=== PATIENT | female | born 1955 | race American Indian/Alaskan Native ===

== ENCOUNTER 2016-12-03 18:15 | Emergency (ER) | payer MEDICARE ==
[2016-12-03] MEDS ORDERED: TYLENOL #3 ONE (19:26)
[2016-12-03] MEDS ORDERED: TYLENOL #3 PO ONE (20:01)
[2016-12-04 01:28] VITALS: BP 126/71
--- NOTE | 2016-12-04 01:43 | Emergency Department Report ---
HPI - General Chief Complaint: Back Pain/Injury Time Seen by Provider: 12/04/16 01:04 - HPI HPI: Patient here complaining of chronic back pain and shoulder pain 2 years. She said that she is out of her oxycodone at home. Patient sees a pain specialist. She said she is having worse back pain radiating down her legs 3 days. Denies any new trauma. He reports pain is 7 out of 10 and achy . The urinary burning frequency or urgency. Denies any abdominal pain. Denies any loss of bowel or bladder function. Denies any numbness or tingling to extremities. ED Past Medical Hx - Past Medical History Previous Medical History?: Yes Hx Hypertension: Yes Hx GERD: Yes Hx Asthma: Yes Additional medical history: Herniated disc, vertigo. Chronic back pain - Surgical History Past Surgical History?: Yes Hx Cholecystectomy: Yes Additional Surgical History: Ectopic X2. Parathyroid Removal. Hysterectomy - Family History Family history: no significant - Social History Smoking Status: Never Smoker Substance Use Type: None - Medications Home Medications: Home Medications Medication Instructions Recorded Confirmed Last Taken Type ALBUTEROL NEB's [Proventil 0.083% 2.5 mg INHALATION Q6H PRN 10/26/13 10/26/13 History NEBS] Fexofenadine/Pseudoephedrine 180 mg PO DAILY 10/26/13 10/26/13 08/03/15 History [Rosanna-D 12 Hour Tablet] Meclizine HCl [Antivert] 25 mg PO Q8HR #12 tablet 10/26/13 08/03/15 Rx NIFEdipine [Nifedipine ER] 30 mg PO DAILY 10/26/13 10/26/13 08/03/15 History Ondansetron [Zofran] 4 mg PO Q6HR PRN #12 tablet 10/26/13 Unknown Rx Acetaminophen/Codeine [Tylenol #3] 1 tab PO Q6H PRN #15 tab 08/04/15 Unknown Rx methOCARBAMOL [Robaxin TAB] 500 mg PO BID #20 tab 08/04/15 Unknown Rx Acetaminophen/Codeine [Tylenol #3] 1 tab PO Q6H PRN #20 tab 10/29/15 Unknown Rx Ibuprofen [Motrin] 600 mg PO Q8H PRN #30 tablet 10/29/15 Unknown Rx traMADol [Ultram] 50 mg PO Q6HR PRN #20 tablet 12/04/16 Unknown Rx ED Review of Systems ROS: Stated complaint: SEVERE BACK/SHOULDER PAIN Other details as noted in HPI Comment: All other systems reviewed and negative Constitutional: denies: chills, fever Eyes: denies: vision change Respiratory: no symptoms reported Cardiovascular: denies: chest pain, palpitations, edema, syncope Gastrointestinal: denies: abdominal pain, nausea, vomiting Genitourinary: denies: urgency, dysuria, frequency, hematuria, discharge Musculoskeletal: back pain, arthralgia. denies: joint swelling, myalgia Skin: denies: rash Neurological: denies: headache, weakness, numbness, paresthesias, confusion, abnormal gait, vertigo Physical Exam - Physical Exam Vital Signs: Vital Signs 12/03/16 12/04/16 19:25 01:27 Temperature 98.6 F 97.8 F Pulse Rate 75 63 Respiratory 20 16 Rate Blood Pressure 159/92 126/71 [Right] O2 Sat by Pulse 99 99 Oximetry General: This is a 61-year-old female well-nourished well-developed in no acute distress. Physical Exam: Head: Normocephalic atraumatic Mouth: Moist, no pharyngeal exudate or erythema. Uvula is midline and oral airway is patent. No facial swelling. No peritonsillar abscesses. Neck: Supple, no C-spine tenderness, no tracheal deviation. Nontender to palpate. no adenopathy. Full range of motion to neck. Back: No vertebral or paraspinal tenderness. No saddle anesthesia. Patient able to ambulate without any difficulties. Negative SLR bilaterally. Full range of motion with normal inspection Neurological: GCS of 15, alert and oriented 3. Speech is clear and fluid. Normal gait. No motor or sensory deficit. Normal reflexes. No facial drooping. No pronator drift and negative Romberg. Eyes: Bilateral pupils equal and reactive to light, bilateral EOM intact. Bilateral sclera and conjunctiva without injection. Normal accommodation. No nystagmus Abdomen: soft, nontender to palpate in all quadrants, no guarding or rebound tenderness. Normal bowel sounds in all quadrants. no CVA tenderness bilaterally Lungs: Clear to auscultate bilaterally no rhonchi wheezes or rales. Normal work of breathing extremity; No CCE. +2 pulses. No neurovascular compromise MSK: Pt with full range of motion to all extremities, no joint deformities or tenderness. No joint erythema or swelling. 5/5 movement. Cardiovascular: S1-S2, regular rate rhythm. No murmurs. Skin: clean Dry and intact no rash no lesions Psych: Normal mood and behavior ED Course Vital Signs 12/03/16 12/04/16 19:25 01:27 Temperature 98.6 F 97.8 F Pulse Rate 75 63 Respiratory 20 16 Rate Blood Pressure 159/92 126/71 [Right] O2 Sat by Pulse 99 99 Oximetry - Reevaluation(s) Reevaluation #1: 12/04/16 02:05 Patient given Decadron 10 mg IM and Toradol 60 mg IM in the emergency room. Status with her that I cannot give her any oxycodone prescription because she is under the care for pain specialists who is the only one that can dispense oxycodone for her. ED Medical Decision Making - Medical Decision Making ED course Seen here with acute exacerbation of chronic back pain with lumbar radiculopathy to both legs. He received Tylenol No. 3 one tablet in triage area while waiting to be seen. She was given Toradol 60 mg IM and Decadron 10 mg IM in emergency room. She does want a prescription for oxycodone because she said she doesn't have an appointment with her pain doctor until later this month. Discussed with her that I cannot give her prescription for oxycodone because she is on Medicare for pain doctor and they are the only one that can write prescription for oxycodone to manage her pain. I discussed with her I will put her on Ultram and she can call her pain specialist tomorrow to discuss further management of pain. He shouldn't agrees and discharged home in stable condition. Discharge home with prescription for Ultram. Critical care attestation.: If time is entered above; I have spent that time in minutes in the direct care of this critically ill patient, excluding procedure time. ED Disposition Clinical Impression: Acute exacerbation of chronic low back pain, Lumbar radiculopathy, chronic Disposition: DISCHARGED TO HOME OR SELFCARE Is pt being admited?: No Does the pt Need Aspirin: No Condition: Stable Instructions: Chronic Back Pain (ED), Lumbar Radiculopathy (ED) Additional Instructions: Call pain specialist in the morning to schedule follow-up visit. Prescriptions: traMADol [Ultram] 50 mg PO Q6HR PRN #20 tablet PRN Reason: Pain Referrals: your, Pain doctor [Other] - 12/04/16 ARIELLE NOLEN MD [Staff Physician] - 12/08/16
[2016-12-04] MEDS ORDERED: TORADOL IM ONE (01:45)
[2016-12-04] MEDS ORDERED: DECADRON IM ONE (01:45)
== END 2016-12-04 02:20 | disposition home or self-care (01) ==
LOC: ED 18:15
DX: M54.16 Radiculopathy, lumbar region (principal); M54.5 Low back pain; G89.29 Other chronic pain; I10 Essential (primary) hypertension; K21.9 Gastro-esophageal reflux disease without esophagitis; J45.909 Unspecified asthma, uncomplicated
CPT/HCPCS: 96372; 99282; J1100; J1885

== ENCOUNTER 2018-10-30 17:19 | Emergency (ER) | payer MEDICARE ==
--- NOTE | 2018-10-30 17:41 | Emergency Department Report ---
Blank Doc - Documentation Documentation: This is a 63-year-old female that presents with URI symptoms. Exam: lungs clear This initial assessment/diagnostic orders/clinical plan/treatment(s) is/are subject to change based on patient's health status, clinical progression and re- assessment by fellow clinical providers in the ED. Further treatment and workup at subsequent clinical providers discretion. Patient/guardians urged not to elope from the ED as their condition may be serious if not clinically assessed and managed. Initial orders include: 1- Patient sent to [facility] for further evaluation and treatment 2- cxr
--- NOTE | 2018-10-30 18:39 | XRay Report ---
PROCEDURE: XR CHEST ROUTINE 2V TECHNIQUE: PA and lateral chest radiographs were obtained. HISTORY: cough COMPARISONS: None. FINDINGS: Heart: Normal. Mediastinum/Vessels: Normal. Lungs/Pleural space: Normal. Bony thorax: No acute osseous abnormality. IMPRESSION: Normal examination. This document is electronically signed by Mason Ghosh MD., October 30 2018 06:37:40 PM ET
[2018-10-30] MEDS ORDERED: PROVENTIL IH ONE (21:01)
[2018-10-30] MEDS ORDERED: DELTASONE PO ONE (21:01)
--- NOTE | 2018-10-30 21:11 | Emergency Department Report ---
Minor Respiratory - HPI Chief Complaint: Adult Asthma Stated Complaint: ASTHMA ATTACK Time Seen by Provider: 10/30/18 17:39 Duration: 4 Days Pain Location: Chest Severity: mild Minor Respiratory: Yes Able to Tolerate Fluids, Yes Cough, Yes Shortness of Breath, No Rhinorrhea, No Sore Throat, No Ear Pain, No Sick Contacts, No Hemoptysis, No Chest Pain, No Fever Other History: 63 yo female with asthma/ copd reports 4 days worsening s/s. no hypoxia. no fever. sputum yellow. ambulatory and nontoxic. no cp.sob is only when wheezing. ED Review of Systems ROS: Stated complaint: ASTHMA ATTACK Other details as noted in HPI Comment: All other systems reviewed and negative ED Past Medical Hx - Past Medical History Hx Hypertension: Yes Hx GERD: Yes Hx Arthritis: Yes Hx Asthma: Yes Additional medical history: Herniated disc, vertigo. Chronic back pain - Surgical History Hx Cholecystectomy: Yes Additional Surgical History: Ectopic X2. Parathyroid Removal. Hysterectomy - Social History Smoking Status: Unknown if ever smoked Substance Use Type: None - Medications Home Medications: Home Medications Medication Instructions Recorded Confirmed Last Taken Type ALBUTEROL NEB's [Proventil 0.083% 2.5 mg INHALATION Q6H PRN 10/26/13 10/26/13 08/04/15 History NEBS] Fexofenadine/Pseudoephedrine 180 mg PO DAILY 10/26/13 10/26/13 08/03/15 History [Rosanna-D 12 Hour Tablet] Meclizine HCl [Antivert] 25 mg PO Q8HR #12 tablet 10/26/13 08/03/15 Rx NIFEdipine [Nifedipine ER] 30 mg PO DAILY 10/26/13 10/26/13 08/03/15 History Ondansetron [Zofran] 4 mg PO Q6HR PRN #12 tablet 10/26/13 Unknown Rx Acetaminophen/Codeine [Tylenol #3] 1 tab PO Q6H PRN #15 tab 08/04/15 Unknown Rx methOCARBAMOL [Robaxin TAB] 500 mg PO BID #20 tab 08/04/15 Unknown Rx Acetaminophen/Codeine [Tylenol #3] 1 tab PO Q6H PRN #20 tab 10/29/15 Unknown Rx Ibuprofen [Motrin] 600 mg PO Q8H PRN #30 tablet 10/29/15 Unknown Rx traMADol [Ultram] 50 mg PO Q6HR PRN #20 tablet 12/04/16 Unknown Rx methylPREDNISolone [Medrol] 4 mg PO DAILY #1 tab.ds.pk 07/01/18 Unknown Rx Albuterol Sulfate [Ventolin HFA] 2 puff IH Q4H PRN #1 hfa.aer.ad 10/30/18 Unknown Rx Azithromycin [Zithromax Z-MICHAEL] 250 mg PO DAILY #6 tablet 10/30/18 Unknown Rx Cetirizine HCl [ZyrTEC] 10 mg PO DAILY #30 capsule 10/30/18 Unknown Rx Fluticasone [Flonase] 1 spray NS QDAY #1 bottle 10/30/18 Unknown Rx predniSONE [Deltasone] 20 mg PO DAILY #5 tablet 10/30/18 Unknown Rx Minor Respiratory Exam - Exam General: Vital signs noted. No distress. Alert and acting appropriately. HEENT: Yes Moist Mucous Membranes, No Pharyngeal Erythema, No Pharyngeal Exu dates, No Rhinorrhea, No Conjuctival Injection, No Frontal Tenderness, No Maxillary Tenderness Ear: Neither TM Bulge, Neither TM Erythema, Neither EAC Pain, Neither EAC Discha rge Neck: Yes Supple, No Adenopathy Lungs: Yes Good Air Exchange, Yes Wheezes, No Ronchi, No Stridor, No Cough Heart: Yes Regular, No Murmur Abdomen: Yes Normal Bowel Sounds, No Tenderness, No Peritoneal Signs Skin: No Rash, No Edema Neurologic: Alert and oriented, no deficits. Musculoskeletal: Unremarkable. ED Course Vital Signs 10/30/18 17:42 Temperature 99.4 F Pulse Rate 94 H Respiratory 18 Rate Blood Pressure 171/91 O2 Sat by Pulse 97 Oximetry ED Medical Decision Making - Radiology Data Radiology results: report reviewed, image reviewed - Medical Decision Making Vital Signs 10/30/18 10/30/18 10/30/18 17:42 22:12 22:19 Temperature 99.4 F 98.6 F Pulse Rate 94 H 79 Respiratory 18 20 20 Rate Blood Pressure 171/91 Blood Pressure 142/91 [Right] O2 Sat by Pulse 97 98 98 Oximetry Medicated in ER and dc home with dc plan of care. ambulatory, taking po and reports feeling better. Critical care attestation.: If time is entered above; I have spent that time in minutes in the direct care of this critically ill patient, excluding procedure time. ED Disposition Clinical Impression: URTI (acute upper respiratory infection), Asthma with acute exacerbation Disposition: DC-01 TO HOME OR SELFCARE Is pt being admited?: No Does the pt Need Aspirin: No Condition: Stable Instructions: Asthma (ED) Prescriptions: predniSONE [Deltasone] 20 mg PO DAILY #5 tablet Fluticasone [Flonase] 1 spray NS QDAY #1 bottle Albuterol Sulfate [Ventolin HFA] 2 puff IH Q4H PRN #1 hfa.aer.ad PRN Reason: Shortness Of Breath Azithromycin [Zithromax Z-MICHAEL] 250 mg PO DAILY #6 tablet Cetirizine HCl [ZyrTEC] 10 mg PO DAILY #30 capsule Referrals: REYNA CANDELARIA MD [Primary Care Provider] - 3-5 Days Time of Disposition: 21:25
[2018-10-30 22:12] VITALS: BP 142/91
== END 2018-10-30 22:21 | disposition home or self-care (01) ==
LOC: ED 17:19
DX: J06.9 Acute upper respiratory infection, unspecified (principal); J45.901 Unspecified asthma with (acute) exacerbation; G89.29 Other chronic pain; K21.9 Gastro-esophageal reflux disease without esophagitis; I10 Essential (primary) hypertension; M19.90 Unspecified osteoarthritis, unspecified site; Z90.710 Acquired absence of both cervix and uterus; Z90.89 Acquired absence of other organs; Z90.49 Acquired absence of other specified parts of digestive tract
CPT/HCPCS: 71046; 94640; 99283; J7512

== ENCOUNTER 2019-01-22 22:02 | Emergency (ER) | payer MEDICARE ==
--- NOTE | 2019-01-23 00:37 | XRay Report ---
RIGHT WRIST, 4 VIEWS 01/23/2019 INDICATION / CLINICAL INFORMATION: fall. COMPARISON: None available. FINDINGS: No fracture or dislocation. Moderate degenerative changes are seen in the first carpal metacarpal joint. Signer Name: Valentin Allen MD Signed: 01/23/2019 12:32 AM Workstation Name: [id number]
[2019-01-23] MEDS ORDERED: ULTRAM PO ONE (01:25)
[2019-01-23] MEDS ORDERED: DELTASONE PO ONE (01:25)
--- NOTE | 2019-01-23 02:06 | Emergency Department Report ---
Upper Extremity - [facility] Chief Complaint: Extremity Injury, Upper Stated Complaint: RIGHT WRIST PAIN Time Seen by Provider: 01/23/19 01:21 Upper Extremity: Right Hand Occurred When: >5 Days Mechanism: Fall Severity: moderate Symptoms: Yes Pain with Movement, Yes Limited Range of Movement, No Deformity, No Numbness, No Weakness, No Swelling, No Bruising/Ecchymosis, No Laceration or Abrasion Other History: pt s/p glf 1 week ago landing right hand forearm now with 5/10 aching intermittent pain exacerbated by palpation and movement pt relieved by rest there is no numbness no tingling paralysis no deformity ED Review of Systems ROS: Stated complaint: RIGHT WRIST PAIN Other details as noted in HPI Constitutional: denies: chills, fever Eyes: denies: eye pain, eye discharge, vision change ENT: denies: ear pain, throat pain Respiratory: denies: cough, shortness of breath, wheezing Cardiovascular: denies: chest pain, palpitations Endocrine: no symptoms reported Gastrointestinal: denies: abdominal pain, nausea, diarrhea Genitourinary: denies: urgency, dysuria, discharge Musculoskeletal: denies: back pain, joint swelling, arthralgia Skin: denies: rash, lesions Neurological: denies: headache, weakness, paresthesias Psychiatric: denies: anxiety, depression Hematological/Lymphatic: denies: easy bleeding, easy bruising ED Past Medical Hx - Past Medical History Hx Hypertension: Yes Hx GERD: Yes Hx Arthritis: Yes Hx Asthma: Yes Additional medical history: Herniated disc, vertigo. Chronic back pain - Surgical History Past Surgical History?: Yes Hx Cholecystectomy: Yes Additional Surgical History: Ectopic X2. Parathyroid Removal. Hysterectomy - Social History Smoking Status: Never Smoker Substance Use Type: None - Medications Home Medications: Home Medications Medication Instructions Recorded Confirmed Last Taken Type ALBUTEROL NEB's [Proventil 0.083% 2.5 mg INHALATION Q6H PRN 10/26/13 10/26/13 08/04/15 History NEBS] Fexofenadine/Pseudoephedrine 180 mg PO DAILY 10/26/13 10/26/13 08/03/15 History [Rosanna-D 12 Hour Tablet] Meclizine HCl [Antivert] 25 mg PO Q8HR #12 tablet 10/26/13 08/03/15 Rx NIFEdipine [Nifedipine ER] 30 mg PO DAILY 10/26/13 10/26/13 08/03/15 History Ondansetron [Zofran] 4 mg PO Q6HR PRN #12 tablet 10/26/13 Unknown Rx Acetaminophen/Codeine [Tylenol #3] 1 tab PO Q6H PRN #15 tab 08/04/15 Unknown Rx methOCARBAMOL [Robaxin TAB] 500 mg PO BID #20 tab 08/04/15 Unknown Rx Acetaminophen/Codeine [Tylenol #3] 1 tab PO Q6H PRN #20 tab 10/29/15 Unknown Rx Ibuprofen [Motrin] 600 mg PO Q8H PRN #30 tablet 10/29/15 Unknown Rx traMADol [Ultram] 50 mg PO Q6HR PRN #20 tablet 12/04/16 Unknown Rx methylPREDNISolone [Medrol] 4 mg PO DAILY #1 tab.ds.pk 07/01/18 Unknown Rx Albuterol Sulfate [Ventolin HFA] 2 puff IH Q4H PRN #1 hfa.aer.ad 10/30/18 Unknown Rx Azithromycin [Zithromax Z-MICHAEL] 250 mg PO DAILY #6 tablet 10/30/18 Unknown Rx Cetirizine HCl [ZyrTEC] 10 mg PO DAILY #30 capsule 10/30/18 Unknown Rx Fluticasone [Flonase] 1 spray NS QDAY #1 bottle 10/30/18 Unknown Rx predniSONE [Deltasone] 20 mg PO DAILY #5 tablet 10/30/18 Unknown Rx Acetaminophen [Acetaminophen TAB] 1,000 mg PO Q6HR PRN #30 tablet 01/23/19 Unknown Rx Diclofenac 1% [Diclofenac 1% 1 applicatio TP QID PRN #1 tube 01/23/19 Unknown Rx topical gel] predniSONE [Deltasone] 40 mg PO QDAY 5 Days #10 tab 01/23/19 Unknown Rx Upper Extremity Exam - Exam General: Vital signs noted. No distress. Alert and acting appropriately. Head and Torso: No HEENT Abnormality, No Neck Tenderness, No Chest/Lungs Abnormality, No Abdominal Tenderness, No Back Tenderness Shoulder Exam: Yes Normal Range of Motion in Shoulder, No Shoulder Tenderness, No Clavicle Tenderness, No Shoulder Deformity, No AC Joint Tenderness Arm Exam: No Arm/Humerus Tenderness, No Arm Deformity Elbow: No Elbow Tenderness, No Normal Range of Motion in Elbow, No Elbow Deformity Forearm: No Forearm Tenderness, No Forearm Deformity, No Pain with Pronation, No Pain with Supination Wrist: Yes Wrist Tenderness, Yes Normal ROM in Wrist, No Wrist Deformity, No Snuffbox Tenderness, No Pain with Axial Thumb Compression Hand: Yes Hand Tenderness, Yes Normal ROM in Digit(s), No Hand Deformity, No Digit Tenderness, No Digit(s) Deformity, No Tendon Dysfunction CMS Exam: Yes Normal Distal Pulses, Yes Normal Capillary Refill, Yes Normal Distal Sensation, No Broken Skin ED Course Vital Signs 01/22/19 01/22/19 22:26 23:55 Temperature 98.6 F 97.5 F L Pulse Rate 65 82 Respiratory 18 18 Rate Blood Pressure 132/77 Blood Pressure 157/91 [Left] O2 Sat by Pulse 98 99 Oximetry ED Medical Decision Making - Radiology Data Radiology results: report reviewed, image reviewed Ordering Physician: RON GREENWOOD MD Date of Service: 01/22/19 Procedure(s): XR wrist 3+V RT Accession Number(s): [id number] cc: RON GREENWOOD MD Fluoro Time In Minutes: RIGHT WRIST, 4 VIEWS 01/23/2019 INDICATION / CLINICAL INFORMATION: fall. COMPARISON: None available. FINDINGS: No fracture or dislocation. Moderate degenerative changes are seen in the first carpal metacarpal joint. Signer Name: Valentin Allen MD Signed: 01/23/2019 12:32 AM Workstation Name: [id number] Transcribed By: PINKY Dictated By: Valentin Allen MD Electronically Authenticated By: Valentin Allen MD Signed Date/Time: 01/23/1931 DD/ TD/TT: - Medical Decision Making this is hand sprain with chronic arthritic changes plan wrist splint tyelnol, doclofenac, short steroid burst follow up with pcp in 2-3 days return to emergency if symptoms worsen. pt verbalized agreement and understanding of same pt for dc to home in stable condition at this time. Critical care attestation.: If time is entered above; I have spent that time in minutes in the direct care of this critically ill patient, excluding procedure time. ED Disposition Clinical Impression: Arm sprain Disposition: DC-01 TO HOME OR SELFCARE Is pt being admited?: No Does the pt Need Aspirin: No Condition: Stable Instructions: Arthralgia (ED), Muscle Strain (ED) Prescriptions: Acetaminophen [Acetaminophen TAB] 1,000 mg PO Q6HR PRN #30 tablet PRN Reason: Pain , Severe (7-10) predniSONE [Deltasone] 40 mg PO QDAY 5 Days #10 tab Diclofenac 1% [Diclofenac 1% topical gel] 1 applicatio TP QID PRN #1 tube PRN Reason: Pain , Severe (7-10) Referrals: KAT ARGUETA MD [Staff Physician] - 3-5 Days Forms: Work/School Release Form(ED) Time of Disposition: 02:13
[2019-01-23 02:31] VITALS: BP 137/79
== END 2019-01-23 02:32 | disposition home or self-care (01) ==
LOC: ED 22:02
DX: S63.91XA Sprain of unspecified part of right wrist and hand, initial encounter (principal); I10 Essential (primary) hypertension; K21.9 Gastro-esophageal reflux disease without esophagitis; M19.90 Unspecified osteoarthritis, unspecified site; J45.909 Unspecified asthma, uncomplicated; G89.29 Other chronic pain; M54.9 Dorsalgia, unspecified; Z90.49 Acquired absence of other specified parts of digestive tract; Z90.710 Acquired absence of both cervix and uterus; Z79.899 Other long term (current) drug therapy; W18.30XA Fall on same level, unspecified, initial encounter; Y93.89 Activity, other specified; Y92.89 Other specified places as the place of occurrence of the external cause; Y99.8 Other external cause status
CPT/HCPCS: 29125; 73110; 99284; J7512

== ENCOUNTER 2021-01-09 10:28 | Emergency (ER) | payer MEDICARE ==
[2021-01-09] MEDS ORDERED: MORPHINE 4 MG/1 ML INJ IV ONE (10:39)
[2021-01-09] MEDS ORDERED: ONDANSETRON 4 MG/2 ML INJ IV ONE (10:39)
[2021-01-09] MEDS ORDERED: IBUPROFEN 800 MG TAB PO ONE (10:41)
--- NOTE | 2021-01-09 10:46 | Emergency Department Report ---
ED Fall HPI - General Chief Complaint: Dyspnea/Respdistress Stated Complaint: FALL Time Seen by Provider: 01/09/21 10:39 Source: EMS Mode of arrival: Stretcher - History of Present Illness Initial Comments: Chief complaint fall shoulder pain back pain hip pain HPI: 65-year-old female with history of CVA, dyslipidemia, hypertension, asthma, cervical and lumbar degenerative disc disease, right rotator cuff syndrome who presents with severe right shoulder right hip lower back pain after mechanical fall. Patient slipped on wet pavement at local [employer] restaurant. Patie nt denies headache, neck pain, loss of consciousness. Fall witnessed by employees. Patient is on no anticoagulation. History obtained from EMS and patient. Patient arrived with cervical collar and spine board in place. 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) Prolonged Down Time?: no Symptoms Prior to Fall: none Location: other (Right shoulder lower back right hip) Severity: severe Severity scale (0 -10): 10 Quality: dull, aching Context: tripped/slipped - Related Data Home Medications Medication Instructions Recorded Confirmed Last Taken ALBUTEROL NEB's [Proventil 0.083% 2.5 mg INHALATION Q6H PRN 10/26/13 10/26/13 08/04/15 NEBS] Fexofenadine/Pseudoephedrine 180 mg PO DAILY 10/26/13 10/26/13 08/03/15 [Rosanna-D 12 Hour Tablet] NIFEdipine [Nifedipine ER] 30 mg PO DAILY 10/26/13 10/26/13 08/03/15 Previous Rx's Medication Instructions Recorded Last Taken Type Meclizine HCl [Antivert] 25 mg PO Q8HR #12 tablet 10/26/13 08/03/15 Rx Ondansetron [Zofran] 4 mg PO Q6HR PRN #12 tablet 10/26/13 Unknown Rx Acetaminophen/Codeine [Tylenol #3] 1 tab PO Q6H PRN #15 tab 08/04/15 Unknown Rx methOCARBAMOL [Robaxin TAB] 500 mg PO BID #20 tab 08/04/15 Unknown Rx Acetaminophen/Codeine [Tylenol #3] 1 tab PO Q6H PRN #20 tab 10/29/15 Unknown Rx Ibuprofen [Motrin] 600 mg PO Q8H PRN #30 tablet 10/29/15 Unknown Rx traMADoL [Ultram] 50 mg PO Q6HR PRN #20 tablet 12/04/16 Unknown Rx methylPREDNISolone [Medrol] 4 mg PO DAILY #1 tab.ds.pk 07/01/18 Unknown Rx Albuterol Sulfate [Ventolin HFA] 2 puff IH Q4H PRN #1 hfa.aer.ad 10/30/18 Unknown Rx Azithromycin [Zithromax Z-MICHAEL] 250 mg PO DAILY #6 tablet 10/30/18 Unknown Rx Cetirizine HCl [ZyrTEC] 10 mg PO DAILY #30 capsule 10/30/18 Unknown Rx Fluticasone [Flonase] 1 spray NS QDAY #1 bottle 10/30/18 Unknown Rx predniSONE [Deltasone] 20 mg PO DAILY #5 tablet 10/30/18 Unknown Rx Acetaminophen [Acetaminophen TAB] 1,000 mg PO Q6HR PRN #30 tablet 01/23/19 Unknown Rx Diclofenac 1% [Diclofenac 1% 1 applicatio TP QID PRN #1 tube 01/23/19 Unknown Rx topical gel] predniSONE [Deltasone] 40 mg PO QDAY 5 Days #10 tab 01/23/19 Unknown Rx traMADoL [Ultram 50 MG tab] 50 mg PO Q6HR PRN #15 tablet 01/09/21 Unknown Rx Allergies Allergy/AdvReac Type Severity Reaction Status Date / Time No Known Allergies Allergy Verified 01/09/21 10:51 ED Review of Systems ROS: Stated complaint: FALL Other details as noted in HPI Comment: All other systems reviewed and negative Constitutional: denies: fever, malaise Respiratory: denies: cough, shortness of breath Cardiovascular: denies: chest pain Gastrointestinal: denies: abdominal pain, nausea, vomiting Musculoskeletal: back pain, arthralgia Neurological: denies: headache, numbness, paresthesias ED Past Medical Hx - Past Medical History Previous Medical History?: Yes Hx Hypertension: Yes Hx GERD: Yes Hx Arthritis: Yes Hx Asthma: Yes Additional medical history: Herniated disc, vertigo. Chronic back pain - Surgical History Past Surgical History?: Yes Hx Cholecystectomy: Yes Additional Surgical History: Ectopic X2. Parathyroid Removal. Hysterectomy - Social History Smoking Status: Never Smoker Substance Use Type: Marijuana - Medications Home Medications: Home Medications Medication Instructions Recorded Confirmed Last Taken Type ALBUTEROL NEB's [Proventil 0.083% 2.5 mg INHALATION Q6H PRN 10/26/13 10/26/13 08/04/15 History NEBS] Fexofenadine/Pseudoephedrine 180 mg PO DAILY 10/26/13 10/26/13 08/03/15 History [Rosanna-D 12 Hour Tablet] Meclizine HCl [Antivert] 25 mg PO Q8HR #12 tablet 10/26/13 08/03/15 Rx NIFEdipine [Nifedipine ER] 30 mg PO DAILY 10/26/13 10/26/13 08/03/15 History Ondansetron [Zofran] 4 mg PO Q6HR PRN #12 tablet 10/26/13 Unknown Rx Acetaminophen/Codeine [Tylenol #3] 1 tab PO Q6H PRN #15 tab 08/04/15 Unknown Rx methOCARBAMOL [Robaxin TAB] 500 mg PO BID #20 tab 08/04/15 Unknown Rx Acetaminophen/Codeine [Tylenol #3] 1 tab PO Q6H PRN #20 tab 10/29/15 Unknown Rx Ibuprofen [Motrin] 600 mg PO Q8H PRN #30 tablet 10/29/15 Unknown Rx traMADoL [Ultram] 50 mg PO Q6HR PRN #20 tablet 12/04/16 Unknown Rx methylPREDNISolone [Medrol] 4 mg PO DAILY #1 tab.ds.pk 07/01/18 Unknown Rx Albuterol Sulfate [Ventolin HFA] 2 puff IH Q4H PRN #1 hfa.aer.ad 10/30/18 Unknown Rx Azithromycin [Zithromax Z-MICHAEL] 250 mg PO DAILY #6 tablet 10/30/18 Unknown Rx Cetirizine HCl [ZyrTEC] 10 mg PO DAILY #30 capsule 10/30/18 Unknown Rx Fluticasone [Flonase] 1 spray NS QDAY #1 bottle 10/30/18 Unknown Rx predniSONE [Deltasone] 20 mg PO DAILY #5 tablet 10/30/18 Unknown Rx Acetaminophen [Acetaminophen TAB] 1,000 mg PO Q6HR PRN #30 tablet 01/23/19 Unknown Rx Diclofenac 1% [Diclofenac 1% 1 applicatio TP QID PRN #1 tube 01/23/19 Unknown Rx topical gel] predniSONE [Deltasone] 40 mg PO QDAY 5 Days #10 tab 01/23/19 Unknown Rx traMADoL [Ultram 50 MG tab] 50 mg PO Q6HR PRN #15 tablet 01/09/21 Unknown Rx ED Physical Exam - General Limitations: Altered Mental Status General appearance: alert, in no apparent distress, other (Patient holding right shoulder and right thigh in severe pain) - Head Head exam: Present: atraumatic, normocephalic - Eye Eye exam: Present: normal appearance - ENT ENT exam: Present: mucous membranes moist - Neck Neck exam: Present: normal inspection, full ROM - Respiratory Respiratory exam: Present: normal lung sounds bilaterally. Absent: respiratory distress, wheezes, rales, rhonchi - Cardiovascular Cardiovascular Exam: Present: regular rate, normal rhythm, normal heart sounds. Absent: systolic murmur, diastolic murmur, rubs, gallop - GI/Abdominal GI/Abdominal exam: Present: soft, normal bowel sounds. Absent: distended, tenderness, guarding, rebound - Extremities Exam Extremities exam: Present: normal inspection - Neurological Exam Neurological exam: Present: alert, oriented X3 - Psychiatric Psychiatric exam: Present: normal affect, normal mood - Skin Skin exam: Present: warm, dry, intact, normal color. Absent: rash ED Course Vital Signs 01/09/21 11:19 Temperature 98.1 F Pulse Rate 66 Respiratory 17 Rate Blood Pressure 126/62 O2 Sat by Pulse 100 Oximetry ED Medical Decision Making - Radiology Data Radiology results: report reviewed Patient Name: SAMAN HARDWICK Gender: Female Date of : 1955 Referring Provider: TIMUR HARDWICK Organization: [facility] Accession Number: [id number] Requested Date: January 09, 2021 10:40 Report Status: Final Requested Procedure: 1 Procedure Description: XR hip 2-3V RT Modality: XR Findings Reporting MD: Juventino Krishnan Dictation Time: January 09, 2021 10:33 Cooler Man: Not available Treasury Associate Date: XR hip 2-3V RT INDICATION / CLINICAL INFORMATION: fall. COMPARISON: None available. FINDINGS: BONES/JOINT(S): No acute fracture or subluxation. Moderate DJD in the right hip joint. No focal bone lesions. SOFT TISSUES: No significant abnormality. ADDITIONAL FINDINGS: None. Signer Name: Juventino Krishnan MD Signed: 01/09/2021 10:33 AM Workstation Name: [email or web address] Patient Name: SAMAN HARDWICK Gender: Female Date of : 1955 Referring Provider: TIMUR HARDWICK Organization: [facility] Accession Number: [id number] Requested Date: January 09, 2021 10:40 Report Status: Final Requested Procedure: 1 Procedure Description: XR shoulder 2+V RT Modality: XR Findings Reporting MD: Juventino Krishnan Dictation Time: January 09, 2021 10:32 Cooler Man: Not available Treasury Associate Date: XR shoulder 2+V RT INDICATION / CLINICAL INFORMATION: fall. COMPARISON: None available. FINDINGS: BONES/JOINT(S): No acute fracture or subluxation. Mild DJD in the AC joint and glenohumeral joint SOFT TISSUES: No significant abnormality. ADDITIONAL FINDINGS: None. Signer Name: Juventino Krishnan MD Signed: 01/09/2021 10:32 AM Workstation Name: [email or web address] Patient Name: SAMAN HARDWICK Gender: Female Date of : 1955 Referring Provider: TIMUR HARDWICK Organization: [facility] Accession Number: [id number] Requested Date: January 09, 2021 10:40 Report Status: Final Requested Procedure: 1 Procedure Description: XR spine lumbosacral 2-3V Modality: XR Findings Reporting MD: Juventino Krishnan Dictation Time: January 09, 2021 10:33 Cooler Man: Not available Treasury Associate Date: XR spine lumbosacral 2-3V INDICATION / CLINICAL INFORMATION: fall pain. COMPARISON: None available. FINDINGS: BONES/JOINT(S): No acute fracture or subluxation. Moderate degenerative disc disease at L1-2 and L4-5 with disc height loss and reactive endplate osteophyte formation. Mild degenerative disc disease at L3-4. SOFT TISSUES: No significant abnormality. ADDITIONAL FINDINGS: None. Signer Name: Juventino Krishnan MD Signed: 01/09/2021 10:33 AM Workstation Name: [employer] - Medical Decision Making This is a 65-year-old female with a history of lumbar degenerative disc disease, right rotator cuff syndrome who presents with right shoulder pain, lower back pain and right hip pain after fall. Fortunately patient does not have a severe traumatic injury. She does have hip contusion and shoulder contusion. I have prescribed tramadol. I have also referred patient to job placement specialist for evaluation and treatment of lumbar disc disease disease and orthopedics for ro tator cuff syndrome. Critical care attestation.: If time is entered above; I have spent that time in minutes in the direct care of this critically ill patient, excluding procedure time. ED Disposition Clinical Impression: Fall from slipping, Contusion of right shoulder, Contusion of right hip, History of sciatica, History of rotator cuff syndrome Disposition: - TO HOME OR SELFCARE Is pt being admited?: No Does the pt Need Aspirin: No Condition: Stable Prescriptions: traMADoL [Ultram 50 MG tab] 50 mg PO Q6HR PRN #15 tablet PRN Reason: Pain Referrals: ANTONI ARAYA II, MD [Staff Physician] - 3-5 Days ARIELLE NOLEN MD [Staff Physician] - 3-5 Days
--- NOTE | 2021-01-09 11:37 | XRay Report ---
XR hip 2-3V RT INDICATION / CLINICAL INFORMATION: fall. COMPARISON: None available. FINDINGS: BONES/JOINT(S): No acute fracture or subluxation. Moderate DJD in the right hip joint. No focal bone lesions. SOFT TISSUES: No significant abnormality. ADDITIONAL FINDINGS: None. Signer Name: Juventino Krishnan MD Signed: 01/09/2021 11:33 AM Workstation Name: [id number]
--- NOTE | 2021-01-09 11:37 | XRay Report ---
XR shoulder 2+V RT INDICATION / CLINICAL INFORMATION: fall. COMPARISON: None available. FINDINGS: BONES/JOINT(S): No acute fracture or subluxation. Mild DJD in the AC joint and glenohumeral joint SOFT TISSUES: No significant abnormality. ADDITIONAL FINDINGS: None. Signer Name: Juventino Krishnan MD Signed: 01/09/2021 11:32 AM Workstation Name: [email or web address]
--- NOTE | 2021-01-09 11:38 | XRay Report ---
XR spine lumbosacral 2-3V INDICATION / CLINICAL INFORMATION: fall pain. COMPARISON: None available. FINDINGS: BONES/JOINT(S): No acute fracture or subluxation. Moderate degenerative disc disease at L1-2 and L4-5 with disc height loss and reactive endplate osteophyte formation. Mild degenerative disc disease at L3-4. SOFT TISSUES: No significant abnormality. ADDITIONAL FINDINGS: None. Signer Name: Juventino Krishnan MD Signed: 01/09/2021 11:33 AM Workstation Name: [email or web address]
[2021-01-09 12:21] VITALS: BP 133/55
== END 2021-01-09 12:18 | disposition home or self-care (01) ==
LOC: ED 10:28
DX: S40.011A Contusion of right shoulder, initial encounter (principal); S70.01XA Contusion of right hip, initial encounter; M54.30 Sciatica, unspecified side; I10 Essential (primary) hypertension; K21.9 Gastro-esophageal reflux disease without esophagitis; M19.91 Primary osteoarthritis, unspecified site; J45.909 Unspecified asthma, uncomplicated; F12.10 Cannabis abuse, uncomplicated; Z90.49 Acquired absence of other specified parts of digestive tract; Z98.890 Other specified postprocedural states; Z79.1 Long term (current) use of non-steroidal anti-inflammatories (NSAID); Z79.899 Other long term (current) drug therapy; W01.0XXA Fall on same level from slipping, tripping and stumbling without subsequent striking against object, initial encounter; Y93.89 Activity, other specified; Y92.410 Unspecified street and highway as the place of occurrence of the external cause; Y99.8 Other external cause status
CPT/HCPCS: 72100; 73030; 73502; 96374; 96375; 99284; J2270; J2405

== ENCOUNTER 2021-02-12 14:11 | Emergency (ER) | payer MEDICARE, OTHER ==
[2021-02-12 16:20] VITALS: BP 115/68
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
== END 2021-02-12 17:30 | disposition home or self-care (01) ==
LOC: ED 14:11
DX: M54.5 Low back pain (principal); I10 Essential (primary) hypertension; J45.909 Unspecified asthma, uncomplicated; K21.9 Gastro-esophageal reflux disease without esophagitis; M19.90 Unspecified osteoarthritis, unspecified site; G89.29 Other chronic pain; F12.90 Cannabis use, unspecified, uncomplicated; Z90.49 Acquired absence of other specified parts of digestive tract; Z90.710 Acquired absence of both cervix and uterus; Z98.890 Other specified postprocedural states; Z79.899 Other long term (current) drug therapy; V87.7XXA Person injured in collision between other specified motor vehicles (traffic), initial encounter; Y93.89 Activity, other specified; Y92.488 Other paved roadways as the place of occurrence of the external cause; Y99.8 Other external cause status
CPT/HCPCS: 72100; 99283

== ENCOUNTER 2021-08-25 13:22 | Emergency (ER) | payer MEDICARE ==
[2021-08-25] MEDS ORDERED: MORPHINE 2 MG/1 ML INJ IV ONE (15:48)
[2021-08-25] MEDS ORDERED: SODIUM CHLORIDE 0.9% 1000 ML 1,000 ML IV ONE (15:48)
[2021-08-25] MEDS ORDERED: ONDANSETRON 4 MG/2 ML INJ IV ONE (15:48)
--- NOTE | 2021-08-25 15:48 | Emergency Department Report ---
ED Abdominal Pain HPI - General Chief Complaint: Abdominal Pain Stated Complaint: POST OP PAIN Time Seen by Provider: 08/25/21 15:46 Source: patient Mode of arrival: Ambulatory Limitations: No Limitations - History of Present Illness Initial Comments: 66-year-old female with a history of colon cancer status post colon resection about a month ago and hypertension but currently off medications per her PCP presents to the ER today with complaints of severe upper abdominal pain. Patient states that her pain started yesterday it has been constant and radiates into her back. She states that she has not been able to sleep due to the pain. She reports that she has vomited about 2-3 times. She did have a normal bowel movement this morning. She denies any fever or chills. She denies any chest pain or shortness of breath. She denies any UTI symptoms. She denies any melena or hematochezia. She states that her colon cancer was called in the nyla y stages, stage I and therefore she does not need any chemo or radiation. She states that after having her colon resection about a month ago she was placed on hydrocodone as well as 2 other medications, but she was told to stop them because it was causing her to have hallucination. She states that her pain was tolerable until yesterday. MD Complaint: abdominal pain -: days(s) (1) Severity scale (0 -10): 10 - Related Data Home Medications Medication Instructions Recorded Confirmed Last Taken ALBUTEROL NEB's [Proventil 0.083% 2.5 mg INHALATION Q6H PRN 10/26/13 10/26/13 08/04/15 NEBS] Fexofenadine/Pseudoephedrine 180 mg PO DAILY 10/26/13 10/26/13 08/03/15 [Rosanna-D 12 Hour Tablet] NIFEdipine [Nifedipine ER] 30 mg PO DAILY 10/26/13 10/26/13 08/03/15 Previous Rx's Medication Instructions Recorded Last Taken Type Meclizine HCl [Antivert] 25 mg PO Q8HR #12 tablet 10/26/13 08/03/15 Rx Acetaminophen/Codeine [Tylenol #3] 1 tab PO Q6H PRN #15 tab 08/04/15 Unknown Rx methOCARBAMOL [Robaxin TAB] 500 mg PO BID #20 tab 08/04/15 Unknown Rx Acetaminophen/Codeine [Tylenol #3] 1 tab PO Q6H PRN #20 tab 10/29/15 Unknown Rx Ibuprofen [Motrin] 600 mg PO Q8H PRN #30 tablet 10/29/15 Unknown Rx methylPREDNISolone [Medrol] 4 mg PO DAILY #1 tab.ds.pk 07/01/18 Unknown Rx Albuterol Sulfate [Ventolin HFA] 2 puff IH Q4H PRN #1 hfa.aer.ad 10/30/18 Unknown Rx Azithromycin [Zithromax Z-MICHAEL] 250 mg PO DAILY #6 tablet 10/30/18 Unknown Rx Cetirizine HCl [ZyrTEC] 10 mg PO DAILY #30 capsule 10/30/18 Unknown Rx Fluticasone [Flonase] 1 spray NS QDAY #1 bottle 10/30/18 Unknown Rx Acetaminophen [Acetaminophen TAB] 1,000 mg PO Q6HR PRN #30 tablet 01/23/19 Unknown Rx Diclofenac 1% [Diclofenac 1% 1 applicatio TP QID PRN #1 tube 01/23/19 Unknown Rx topical gel] Meloxicam [Mobic] 7.5 mg PO QDAY PRN #10 tablet 02/12/21 Unknown Rx methOCARBAMOL [Robaxin TAB] 500 mg PO BID PRN #14 tab 02/12/21 Unknown Rx Hyoscyamine Subl [Levsin Sl 0.125 0.125 mg SL Q6HR PRN #20 tab 08/25/21 Unknown Rx TAB] Allergies Allergy/AdvReac Type Severity Reaction Status Date / Time No Known Allergies Allergy Verified 01/09/21 10:51 ED Review of Systems ROS: Stated complaint: POST OP PAIN Other details as noted in HPI Comment: All other systems reviewed and negative Constitutional: denies: chills, fever Eyes: denies: eye pain, eye discharge, vision change ENT: denies: ear pain, throat pain Respiratory: denies: cough, shortness of breath, wheezing Cardiovascular: denies: chest pain, palpitations Gastrointestinal: abdominal pain, nausea, vomiting. denies: diarrhea, constipa tion, hematemesis, hematochezia Genitourinary: denies: urgency, dysuria, frequency, hematuria, discharge, abnormal menses, dyspareunia Musculoskeletal: denies: back pain, joint swelling, arthralgia Skin: denies: rash, lesions, change in color, change in hair/nails, pruritus Neurological: denies: headache, weakness, numbness, paresthesias, confusion, abnormal gait, vertigo Psychiatric: denies: anxiety, depression, auditory hallucinations, visual hallucinations, homicidal thoughts, suicidal thoughts Hematological/Lymphatic: denies: easy bleeding, easy bruising, swollen glands ED Past Medical Hx - Past Medical History Hx Hypertension: Yes Hx GERD: Yes Hx Arthritis: Yes Hx Asthma: Yes Additional medical history: Herniated disc, vertigo. Chronic back pain - Surgical History Hx Cholecystectomy: Yes Additional Surgical History: Ectopic X2. Parathyroid Removal. Hysterectomy - Social History Smoking Status: Never Smoker Substance Use Type: Marijuana - Medications Home Medications: Home Medications Medication Instructions Recorded Confirmed Last Taken Type ALBUTEROL NEB's [Proventil 0.083% 2.5 mg INHALATION Q6H PRN 10/26/13 10/26/13 08/04/15 History NEBS] Fexofenadine/Pseudoephedrine 180 mg PO DAILY 10/26/13 10/26/13 08/03/15 History [Rosanna-D 12 Hour Tablet] Meclizine HCl [Antivert] 25 mg PO Q8HR #12 tablet 10/26/13 08/03/15 Rx NIFEdipine [Nifedipine ER] 30 mg PO DAILY 10/26/13 10/26/13 08/03/15 History Acetaminophen/Codeine [Tylenol #3] 1 tab PO Q6H PRN #15 tab 08/04/15 Unknown Rx methOCARBAMOL [Robaxin TAB] 500 mg PO BID #20 tab 08/04/15 Unknown Rx Acetaminophen/Codeine [Tylenol #3] 1 tab PO Q6H PRN #20 tab 10/29/15 Unknown Rx Ibuprofen [Motrin] 600 mg PO Q8H PRN #30 tablet 10/29/15 Unknown Rx methylPREDNISolone [Medrol] 4 mg PO DAILY #1 tab.ds.pk 07/01/18 Unknown Rx Albuterol Sulfate [Ventolin HFA] 2 puff IH Q4H PRN #1 hfa.aer.ad 10/30/18 Unknown Rx Azithromycin [Zithromax Z-MICHAEL] 250 mg PO DAILY #6 tablet 10/30/18 Unknown Rx Cetirizine HCl [ZyrTEC] 10 mg PO DAILY #30 capsule 04/21/19 Unknown Rx Fluticasone [Flonase] 1 spray NS QDAY #1 bottle 10/30/18 Unknown Rx Acetaminophen [Acetaminophen TAB] 1,000 mg PO Q6HR PRN #30 tablet 01/23/19 Unknown Rx Diclofenac 1% [Diclofenac 1% 1 applicatio TP QID PRN #1 tube 01/23/19 Unknown Rx topical gel] Meloxicam [Mobic] 7.5 mg PO QDAY PRN #10 tablet 02/12/21 Unknown Rx methOCARBAMOL [Robaxin TAB] 500 mg PO BID PRN #14 tab 02/12/21 Unknown Rx Hyoscyamine Subl [Levsin Sl 0.125 0.125 mg SL Q6HR PRN #20 tab 08/25/21 Unknown Rx TAB] ED Physical Exam - General Limitations: No Limitations ED Course Vital Signs 08/25/21 08/26/21 15:30 05:47 Temperature 98.2 F Pulse Rate 60 57 L Respiratory 16 18 Rate Blood Pressure 144/78 142/75 [Right] O2 Sat by Pulse 98 99 Oximetry ED Medical Decision Making - Lab Data Result diagrams: 08/25/21 16:34 08/25/21 16:34 - EKG Data EKG shows normal: sinus rhythm Rate: normal (63) - EKG Data Interpretation: normal EKG - Radiology Data Radiology results: report reviewed Patient Name: SAMAN HARDWICK Gender: Female Date of : 1955 Referring Provider: JUDE LAL Organization: [facility] Accession Number: [id number] Requested Date: August 25, 2021 15:47 Report Status: Final Requested Procedure: 1 Procedure Description: CT abdomen pelvis w con Modality: CT Findings Reporting MD: Jamel Nowak Dictation Time: August 25, 2021 18:35 Client Relation Specialist: Not available 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 TECHNIQUE: The patient received 100 cc Omnipaque [address] scans at this location are performed using CT dose reduction for ALARA by means of automated exposure control. COMPARISON: None available. FINDINGS: ABDOMEN: There is partial resection of the right colon with mild soft tissue stranding in the adjacent peritoneal fat, likely postsurgical. No abnormal mass or fluid collection is seen. There is no evidence of extraluminal gas or bowel obstruction. The gallbladder is surgically absent. There is mild benign-appearing nodularity/hyperplasia of both adrenal glands, greater on the left. The liver, spleen, bile ducts, pancreas, and kidneys are normal. No adenopathy is present. No acute vascular abnormality is seen. There is mild bibasilar subsegmental atelectasis. PELVIS: The distal ureters and urinary bladder are normal. The uterus is not identified. There is no evidence of adnexal mass or free fluid. The appendix has been removed. There are scattered left colonic diverticula without acute inflammation. I do not identify a hernia. There is advanced spondylosis. There are moderate degenerative changes involving the right hip. IMPRESSION: Expected postoperative findings of recent right hemicolectomy. No surgical complication or other acute abnormality is seen. Signer Name: Jamel Nowak MD Signed: 08/25/2021 6:35 PM Workstation Name: [email or web address] - Medical Decision Making pt resting more comfortably after meds. She has had no vomiting during stay. She is not toxic or ill appearing. She is neuro intact Work up today show nothing acute including negative CT abdomen and pelvis, nl EKG and normal trop Exact cause of patient upper abd pain unclear at this time but there is no indication for further testing, admission or specialist consult at this time Discussed results with patient. recommend follow up with her surgeon and PCP. Pt expressed understanding and agreed with plan. Pt was stable at time of discharge. - Differential Diagnosis SBO, pancreatitis, cholecystitis, NSTEMI, STEMI, uti Critical care attestation.: If time is entered above; I have spent that time in minutes in the direct care of this critically ill patient, excluding procedure time. ED Disposition Clinical Impression: Upper abdominal pain Disposition: 01 HOME / SELF CARE / HOMELESS Is pt being admited?: No Does the pt Need Aspirin: No Condition: Stable Instructions: Abdominal Pain, Adult, Abdominal Pain (ED) Additional Instructions: Take the Zofran as prescribed to help with nausea and vomiting. Take the Levsin to help with abdominal cramps. I do recommend that you follow-up with your surgeon and your primary care doctor this week. Return to the ER if your symptoms changes or worsens in any way. Prescriptions: Hyoscyamine Subl [Levsin Sl 0.125 TAB] 0.125 mg SL Q6HR PRN #20 tab PRN Reason: Abdominal cramps Referrals: [facility] [Other] - 3-5 Days Time of Disposition: 20:33
[2021-08-25 16:51] LABS: Basophils # (Auto) 0.1 K/mm3 (0.0-0.1); Basophils % (Auto) 0.9 % (0.0-1.8); Eosinophils # (Auto) 0.4 K/mm3 (0.0-0.4); Eosinophils % (Auto) 6.8 % (0.0-4.3); Hematocrit 37.8 % (30.3-42.9); Hemoglobin 12.2 gm/dl (10.1-14.3); Lymphocytes # (Auto) 2.2 K/mm3 (1.2-5.4); Lymphocytes % (Auto) 39.2 % (13.4-35.0); Mean Corpuscular HGB Conc 32 % (30-34); Mean Corpuscular Volume 87 fl (79-97); Monocytes # (Auto) 0.4 K/mm3 (0.0-0.8); Monocytes % (Auto) 7.8 % (0.0-7.3); Platelet Count 172 K/mm3 (140-440); Red Blood Count 4.32 M/mm3 (3.65-5.03); Red Cell Distribution Width 13.7 % (13.2-15.2)
[2021-08-25 18:18] LABS: Alanine Aminotransferase 31 units/L (7-56); Albumin 3.8 g/dL (3.9-5); Blood Urea Nitrogen 12 mg/dL (7-17); Calcium 8.7 mg/dL (8.4-10.2); Hemolysis Index 21
[2021-08-25 18:25] LABS: BUN/Creatinine Ratio 17; Bilirubin,Direct < 0.2 mg/dL (0-0.2)
[2021-08-25 22:04] LABS: RBC,Urine < 1.0 /HPF (0.0-6.0); WBC,Urine < 1.0 /HPF (0.0-6.0)
[2021-08-25 22:58] LABS: Blood,Urine Negative (Negative); Color,Urine Colorless (Yellow); Protein,Urine <15 mg/dL mg/dL (Negative)
--- NOTE | 2021-08-25 23:54 | Cat Scan Report ---
CT OF THE ABDOMEN AND PELVIS WITH INTRAVENOUS CONTRAST INDICATION / CLINICAL INFORMATION: Severe abdominal pain status post colon resection. TECHNIQUE: The patient received 100 cc Omnipaque [address] scans at this location are performed using CT dose reduction for ALARA by means of automated exposure control. COMPARISON: None available. FINDINGS: ABDOMEN: There is partial resection of the right colon with mild soft tissue stranding in the adjacen t peritoneal fat, likely postsurgical. No abnormal mass or fluid collection is seen. There is no evid ence of extraluminal gas or bowel obstruction. The gallbladder is surgically absent. There is mild benign-appearing nodularity/hyperplasia of both a drenal glands, greater on the left. The liver, spleen, bile ducts, pancreas, and kidneys are normal. No adenopathy is present. No acute vascular abnormality is seen. There is mild bibasilar subsegmental atelectasis. PELVIS: The distal ureters and urinary bladder are normal. The uterus is not identified. There is no evidence of adnexal mass or free fluid. The appendix has been removed. There are scattered left colon ic diverticula without acute inflammation. I do not identify a hernia. There is advanced spondylosis. There are moderate degenerative changes involving the right hip. IMPRESSION: Expected postoperative findings of recent right hemicolectomy. No surgical complication o r other acute abnormality is seen. Signer Name: Jamel Nowak MD Signed: 08/25/2021 7:35 PM Workstation Name: [email or web address]
[2021-08-26 05:52] VITALS: BP 142/75
--- NOTE | 2021-08-26 14:05 | Electrocardiograph Report ---
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
== END 2021-08-25 23:45 | disposition home or self-care (01) ==
LOC: ED 13:22
DX: R10.10 Upper abdominal pain, unspecified (principal); I10 Essential (primary) hypertension; K21.9 Gastro-esophageal reflux disease without esophagitis; M19.90 Unspecified osteoarthritis, unspecified site; J45.909 Unspecified asthma, uncomplicated; M54.9 Dorsalgia, unspecified; Z90.49 Acquired absence of other specified parts of digestive tract; Z90.710 Acquired absence of both cervix and uterus; Z98.890 Other specified postprocedural states; F12.90 Cannabis use, unspecified, uncomplicated
CPT/HCPCS: 36415; 74177; 80048; 80076; 81001; 83690; 84484; 85025; 93005; 93010; 96361; 96374; 96375; 99284; J2270; J2405; J7030; Q9967; Q0162